=== PATIENT | male | born 2000 | race Two or more races ===

== ENCOUNTER 2022-02-07 10:45 | Outpatient (REF) | payer OTHER, SELFPAY ==
[2022-02-09 22:52] LABS: TS Negative Control Passed; TS Panel A 0; TS Panel B 0; TS Positive Control Passed; TSpotTB Negative (Negative)
== END 2022-02-07 10:46 | disposition home or self-care (01) ==
LOC: HO.HMGCLDS 10:45
PROVIDERS: PCP Family Medicine; Visit Provider Internal Medicine
DX: Z11.1 Encounter for screening for respiratory tuberculosis (principal)
CPT/HCPCS: 36415; 86481